=== PATIENT | male | born 1960 | race Caucasian/White ===

== ENCOUNTER 2022-12-06 14:31 | Emergency (ER) | payer OTHER, SELFPAY ==
--- NOTE | ~2022-12-06 | CT_ITS ---
NONCONTRAST CT OF THE THORACOLUMBAR SPINE CLINICAL INFORMATION: Lower leg weakness. COMPARISON: None available. TECHNIQUE: A multidetector CT acquisition of the thoracic and lumbar spine is obtained without contrast. This CT examination was performed using dose optimization techniques as appropriate, variously including the following: *Automated exposure control *Adjustment of mA and/or kV according to patient size (this includes techniques or standardized protocols for targeted exams where dose is matched to indication/reason for exam; i.e. extremities or head) *Use of iterative reconstruction technique FINDINGS: THORACIC SPINE CT: There are 12 rib bearing thoracic type vertebral bodies. There are no acute fractures and there are no acute subluxations. Vertebral body heights are maintained. The disc spaces are preserved. There is multilevel hypertrophic facet arthropathy. There are no suspicious intraosseous lesions. Thoracic disc contours are not diagnostically assessed on CT. There is no high-grade foraminal stenosis. There are a few small paracentral disc protrusions within the mid to lower thoracic spine that would be better assessed with MRI if not contraindicated. There are no significant soft tissue findings. Imaged lungs are clear. LUMBAR SPINE CT: There are 5 nonrib-bearing lumbar-type vertebral bodies. There is grade 1 retrolisthesis of L4 on L5. Grade 1 retrolisthesis of L2 on L3 as well. There are no acute fractures and there are no acute subluxations. There are multilevel endplate osteophytes. No suspicious intraosseous lesions. Vacuum phenomenon within the SI joints bilaterally. There is sigmoid diverticulosis. Bilateral perinephric stranding. Parapelvic cysts on the left side. At L2-L3, there is a diffuse annular disc bulge that mildly indents the ventral thecal sac disc osteophyte results in mild bilateral foraminal encroachment. At L3-L4, there is a diffuse annular disc bulge and there is moderate bilateral facet arthropathy likely resulting in mild narrowing of the central canal and mild bilateral foraminal encroachment. At L4-L5, there is a diffuse annular disc bulge with a superimposed broad-based right paracentral disc protrusion suspected to compress the traversing right greater than left L5 nerve roots within the subarticular zones and likely mild to moderate central canal stenosis. MRI would be more sensitive in assessment if not contraindicated. At L5-S1, there is a diffuse disc osteophyte complex and moderate bilateral facet arthropathy without central canal stenosis nor foraminal stenosis. A far left lateral disc osteophyte protrusion likely contacts the extraforaminal left L5 nerve root. CT/CT thoracic spine wo IV con IMPRESSION: - At L4-L5, there is a diffuse annular disc bulge with a superimposed broad-based right paracentral disc protrusion suspected to compress the traversing right greater than left L5 nerve roots within the subarticular zones and likely mild to moderate central canal stenosis. MRI would be more sensitive in assessment if not contraindicated. - No acute osseous findings within the thoracolumbar spine. MRI would be more sensitive in assessment.
--- NOTE | ~2022-12-06 | CT_ITS ---
EXAMINATION: CT HEAD WITHOUT CONTRAST CLINICAL INFORMATION: Weakness. COMPARISON: None. TECHNIQUE: Contiguous axial imaging was performed from the skull base to vertex without intravenous administration of contrast. Coronal and sagittal reformatted images are performed at the CT scanner. [This CT examination was performed using dose optimization techniques as appropriate, variously including the following: *Automated exposure control *Adjustment of mA and/or kV according to patient size (this includes techniques or standardized protocols for targeted exams where dose is matched to indication/reason for exam; i.e. extremities or head) *Use of iterative reconstruction technique] DLP: 708 mGy-cm. FINDINGS: There is no evidence of acute intracranial hemorrhage or territorial infarction. No abnormal mass-effect or midline shift is seen. [place] to white matter differentiation is well preserved. No extra-axial fluid collections are identified. The ventricles are normal in size. There is no abnormal attenuation within the brain parenchyma. There is no osseous abnormality. The mastoid air cells and visualized portions of the paranasal sinuses are well-aerated. CT/CT head/brain wo IV con IMPRESSION: No acute intracranial pathology.
[2022-12-06 15:09] VITALS: BP 174/91; PULSE 127; RESP 20; TEMP 36.8; O2SAT 97; BMI 28.0
--- NOTE | 2022-12-06 15:09 | ED_ITS ---
HPI - General Adult General Chief complaint: Weakness <FRANCE Lovelace - Last Filed: 12/06/22 15:18> Stated complaint: Weakness/Body pain <FRANCE Lovelace - Last Filed: 12/06/22 15:18> Time Seen by Provider: 12/06/22 16:00 <FRANCE Lovelace Last Filed: 12/06/22 15:18> Source: patient <FRANCE Britt - Last Filed: 12/06/22 16:50> Mode of arrival: ambulatory <FRANCE Britt Last Filed: 12/06/22 16:50> Limitations: no limitations <FRANCE Britt Last Filed: 12/06/22 16:50> History of Present Illness HPI narrative: 62 year old male with PMH of hypertension and spinal trauma presents with 5 days of gradually worsening weakness of both legs, feels pinned down , weakness, malise, fatigue, subjective fevers/chills. Pt also states that he has had bilateral shoulder pain and tingling for the past 5 days as well. Patient states shoulder pain is 7/10 worse with movement better at rest, atraumatic.. Patient is not able to ambulate at this time due to leg weakness, this is not patient's baseline this is never happened to him before. Patient denies numbness and tingling, dizziness, headache, loss of consciousness, back pain, saddle paresthesias, urinary/bowel incontinence/retention, fevers, chills, history of IV drug abuse, recent procedures, recent vaccination, recent illness. <FRANCE Britt Last Filed: 12/06/22 16:50> Related Data Home medications: Previous Rx's Medication Instructions Recorded cyclobenzaprine 10 mg tablet 10 mg PO Q8H #20 tabs 12/06/22 oxycodone-acetaminophen 5 mg-325 1 tab PO Q6H PRN pain #20 tabs 12/06/22 mg tablet (Percocet) <FRANCE Lovelace Last Filed: 12/06/22 15:18> Allergies/adverse reactions: Allergies Allergy/AdvReac Type Severity Reaction Status Date / Time Penicillins [PCN] Allergy Intermediate RASH Unverified 06/29/20 10:56 <FRANCE Lovelace - Last Filed: 12/06/22 15:18> Review of Systems Review of Systems: Constitutional : No Weight loss, + Fever, + Chills, + Fatigue, + Malaise ENT/Mouth : No sore throat, No Rhinorrhea Eyes: No Eye Pain, No Swelling, No Redness Cardiovascular : No Chest Pain, No SOB, No Dyspnea on Exertion, No Orthopnea, No Edema, No Palpitations Respiratory : No Cough, No Sputum, No Wheezing Gastrointestinal : No Nausea, No Vomiting, No Diarrhea, No Constipation, No abdominal Pain, No Hematochezia, No Melena Genitourinary : No Dysuria, No Urinary Frequency, No Hematuria, Musculoskeletal : No joint pain, + Myalgias, No Joint Swelling Skin : No Skin Lesions, No rash Neuro : + Weakness, No Numbness, No Dizziness, No Headache Psych : No Anxiety/Panic, No Depression All other systems reviewed and are negative <FRANCE Britt - Last Filed: 12/06/22 16:50> Yes all other systems are reviewed and are negative <FRANCE Britt - Last Filed: 12/06/22 16:50> [facility] Past Medical History Attestation statement: The following information was validated with the patient. <FRANCE Medley - Last Filed: 12/06/22 16:50> Source: old records reviewed and nursing notes reviewed <FRANCE Britt - Last Filed: 12/06/22 16:50> Social History Social History: Social History Alcohol intake: never Smoked in Last 30 Days: No Use of substances other than those prescribed or required for medical reasons: No Advance Directives: No Advance Directives Information Provided: No <FRANCE Lovelace - Last Filed: 12/06/22 15:18> Physical Exam ED Vital Signs: Vital Signs - 24 hr 12/06/22 15:09 12/06/22 15:47 12/06/22 20:14 Temperature 98.3 F 97.1 F 97.1 F Pulse Rate 127 H 114 H 97 Respiratory Rate 20 18 19 Blood Pressure 174/91 H 174/90 H 162/96 H Pulse Oximetry 97 96 96 Oxygen Delivery Method Room Air Room Air Room Air BMI result Body Mass Index 28.0 <FRANCE Lovelace - Last Filed: 12/06/22 15:18> Vital Signs - 24 hr 12/06/22 15:09 12/06/22 15:47 12/06/22 20:14 Temperature 98.3 F 97.1 F 97.1 F Pulse Rate 127 H 114 H 97 Respiratory Rate 20 18 19 Blood Pressure 174/91 H 174/90 H 162/96 H Pulse Oximetry 97 96 96 Oxygen Delivery Method Room Air Room Air Room Air BMI result Body Mass Index 28.0 Patient noted to be tachycardic <FRANCE Britt - Last Filed: 12/06/22 16:50> Vital Signs - 24 hr 12/06/22 15:09 12/06/22 15:47 12/06/22 20:14 Temperature 98.3 F 97.1 F 97.1 F Pulse Rate 127 H 114 H 97 Respiratory Rate 20 18 19 Blood Pressure 174/91 H 174/90 H 162/96 H Pulse Oximetry 97 96 96 Oxygen Delivery Method Room Air Room Air Room Air BMI result Body Mass Index 28.0 <Mark Anthony Lentz MD - Last Filed: 12/06/22 20:34> Appearance: Alert.? Oriented X3.? No acute distress.? Head: Normocephalic, atraumatic, no step-offs or deformities Eyes: Pupils equal, round and reactive to light.? CVS: Normal heart rate and rhythm.? Pulses normal.? Respiratory: No respiratory distress.? Breath sounds normal.? Abdomen: Soft and nontender.? Skin: Skin warm and dry.? Normal skin color.? Normal skin turgor.? Extremities: No lower extremity edema.? No calf ttp. 5/5 strength to bilateral upper extremities and 4/5 strength to bilateral lower extremities. 2+ patellar reflexes equal bilateral. Back: No midline tenderness, no C-spine tenderness, full range of motion, no CVA tenderness bilaterally Neuro: Oriented X 3.? No motor deficit.? No sensory deficit. CN 2-12 intact patient able to stand and pivot however unable to ambulate at this time he says he feels too weak. <FRANCE Britt - Last Filed: 12/06/22 16:50> Course Course Course Narrative: RME - 62 y/o male with history of spinal cord injury in 1992 with chronic back pain who presents to the ER for evaluation of bilateral lower extremity weakness and pain for the last 4 days associated with difficulty walking. Also reports right shoulder pain and weakness yesterday, now progressing to the left. Unable to lift arms above his head. He reports low grade fevers x3 days and loose watery stools along with diffuse body aches x1 week and feeling like I got his by a truck. Went to Urgent Care yesterday and told he may have a viral syndrome and to come to the ER if symptoms worsened. Concern for ascending neurological process. HR 120-130 in triage. <FRANCE Lovelace - Last Filed: 12/06/22 15:18> Reevaluation(s) Reevaluation #1: Sign out ot Dr. Lentz,. Pending labs Head CT. <FRANCE Britt - Last Filed: 12/06/22 16:50> Medical Decision Making Medical Decision Making [facility] Narrative: 1635 This is a 62-year-old male presenting with weakness to bilateral lower extremities and pain/weakness to bilateral shoulders x5 days progressively worsening. Denies recent surgeries, vaccinations. Does report however increasing stress. Denies red flag symptoms for back pain, denies back pain. Physical examination with diminished strength to bilateral lower extremities 4/5, upper extremities with 5/5 strength, able to stand pivot however unable to walk as he tells me he feels too weak. Normal reflexes 2+ to patellar region. Concerns for possible Guillain-Schurz. Will rule out urinary tract infection, electrolyte abnormalities. Patient former alcoholic will rule out B12 and folate deficiencies. Also rule out Lyme. Unlikely stroke or posterior stroke. Unlikely epidural abscess or cauda equina no signs of cord compression Plan at this time lab work, urine, Lyme test. <FRANCE Britt - Last Filed: 12/06/22 16:50> 1635 This is a 62-year-old male presenting with weakness to bilateral lower extremities and pain/weakness to bilateral shoulders x5 days progressively wors ening. Denies recent surgeries, vaccinations. Does report however increasing stress. Denies red flag symptoms for back pain, denies back pain. Physical examination with diminished strength to bilateral lower extremities 4/5, upper extremities with 5/5 strength, able to stand pivot however unable to walk as he tells me he feels too weak. Normal reflexes 2+ to patellar region. Concerns for possible Guillain-Schurz. Will rule out urinary tract infection, electrolyte abnormalities. Patient former alcoholic will rule out B12 and folate deficiencies. Also rule out Lyme. Unlikely stroke or posterior stroke. Unlikely epidural abscess or cauda equina no signs of cord compression Plan at this time lab work, urine, Lyme test. 1730 >>>>patient seen and re-evaluated patient is status post T5-6 thoracic spine injury in 1992 since then have chronic back unable to surgery for neurosurgeon as location is close to the heart. Since then patient has been having pain off and on the back patient had last MRI in 2005 which showed no changes patient does get numbness and tingling sometimes in the upper extremities and left-sided weakness for last 1 week patient noticed increased upper back pain and for last 2 days pain in the left leg and little weak when walk more than before. Patient has normal reflexes normal sensations no bladder or bowel involvement clinically patient does not have LGB syndrome does not have any signs of or epidural abscess or significant spinal cord injury will do CT scan of thoracic spine and lumbar spine to rule out any disc or any spinal cord impingement//lumbar spinal stenosis. CT scan of thoracic spine negative for any acute lumbar spine showed moderate lumbar canal stenosis per patient has this pain going on for several months got worse in last 1 week patient able to ambulate in the ER chart and pain medication and muscle relaxants advised to follow up with inclusion specialist <Mark Anthony Lentz MD - Last Filed: 12/06/22 20:34> Differential Diagnosis Differential Diagnoses: The differential diagnosis associated with the presentation includes <FRANCE Britt - Last Filed: 12/06/22 16:50> Concerns for possible Guillain-Schurz. Will rule out urinary tract infection, electrolyte abnormalities. Patient former alcoholic will rule out B12 and folate deficiencies. Also rule out Lyme. Unlikely stroke or posterior stroke. Unlikely epidural abscess or cauda equina no signs of cord compression. <FRANCE Britt - Last Filed: 12/06/22 16:50> Admission/Observation Consideration of admission/observation: Escalation of care including admission/observation considered <FRANCE Britt - Last Filed: 12/06/22 16:50> Lab Data MDM Lab Attestation statement: I reviewed the patient's lab results. <FRANCE Britt - Last Filed: 12/06/22 16:50> I reviewed the patient's lab results. <Mark Anthony Lentz MD - Last Filed: 12/06/22 20:34> Result Diagrams: 12/06/22 16:08 12/06/22 16:08 <FRANCE Lovelace - Last Filed: 12/06/22 15:18> Labs: Lab Results 12/06/22 12/06/22 12/06/22 Range/Units 15:57 16:07 16:08 WBC 12.9 H (4.8-10.8) X10*3/uL RBC 4.34 L (4.60-5.80) X10*6/uL Hgb 12.3 L (14.0-18.0) g/dl Hct 36.2 L (42.0-52.0) % MCV 83.4 (80.0-98.0) fL MCH 28.3 (27.0-33.0) pg MCHC 34.0 (31.0-36.0) g/dl RDW 12.1 (11.0-16.0) % Plt Count 325 (160-400) X10*3/uL MPV 8.4 L (9.4-12.4) fL Immature Gran % (Auto) 0.2 (0.0-0.4) % Neut % (Auto) 66.6 (45-73) % Lymph % (Auto) 20.9 (20-40) % [place] % (Auto) 9.4 (2-11) % Eos % (Auto) 2.6 (0-4) % Baso % (Auto) 0.3 (0-2) % Lymph # (Auto) 2.7 (1.2-4.9) X10*3/uL [place] # (Auto) 1.2 (0.1-1.2) X10*3/uL Eos # (Auto) 0.3 (0.0-0.4) X10*3/uL Baso # (Auto) 0.0 (0.0-0.2) X10*3/uL Abs Immat Gran (auto) 0.03 (0.00-0.03) X10*3/uL Absolute Neuts (auto) 8.6 H (2.0-8.3) x10*3/uL Absolute Nucleated RBC 0.000 (0.0-0.012) X10*3/uL Nucleated RBC % (auto) 0.0 (0.0-0.2) /100WBC ESR 87 H (0-15) MM/HR PT (10.0-13.1) SEC INR (0.9-1.1) APTT (26.0-36.4) SEC Sodium (135-145) mmol/L Potassium (3.3-5.1) mmol/L Chloride (96-108) mmol/L Carbon Dioxide (22-29) mmol/L Anion Gap (12-20) BUN (9-16) mg/dL Creatinine (0.5-1.4) mg/dL Estim Creat Clear Calc Estimated GFR Random Glucose (60-115) mg/dL Lactic Acid (0.5-2.0) mmol/L Calcium (8.4-10.2) mg/dL Magnesium (1.6-2.6) mg/dL Total Bilirubin (0.0-1.0) mg/dL Direct Bilirubin (0.0-0.5) mg/dL AST (5-37) U/L ALT (0-40) U/L Alkaline Phosphatase (39-117) U/L Total Creatine Kinase (38-174) U/L C-Reactive Protein (< or = 0.50) mg/dL Total Protein (6.5-8.0) g/dL Albumin (3.5-5.0) g/dL Vitamin B12 (200-900) pg/mL Folate (> or = 4.0) ng/mL TSH (0.32-4.0) uIU/mL Urine Color Urine Appearance Urine pH (5.0-9.0) Ur Specific [place] (1.005-1.025) Urine Protein (Neg-Trace) mg/dL Urine Glucose (UA) (Negative) mg/dL Urine Ketones (Negative) mg/dL Urine Blood (Negative) Urine Nitrite (Negative) Ur Leukocyte Esterase (Negative) COVID-19 ([facility]) Negative (Negative) COVID-19 Clin Com See Note 12/06/22 12/06/22 12/06/22 Range/Units 16:08 16:08 16:08 WBC (4.8-10.8) X10*3/uL RBC (4.60-5.80) X10*6/uL Hgb (14.0-18.0) g/dl Hct (42.0-52.0) % MCV (80.0-98.0) fL MCH (27.0-33.0) pg MCHC (31.0-36.0) g/dl RDW (11.0-16.0) % Plt Count (160-400) X10*3/uL MPV (9.4-12.4) fL Immature Gran % (Auto) (0.0-0.4) % Neut % (Auto) (45-73) % Lymph % (Auto) (20-40) % [place] % (Auto) (2-11) % Eos % (Auto) (0-4) % Baso % (Auto) (0-2) % Lymph # (Auto) (1.2-4.9) X10*3/uL [place] # (Auto) (0.1-1.2) X10*3/uL Eos # (Auto) (0.0-0.4) X10*3/uL Baso # (Auto) (0.0-0.2) X10*3/uL Abs Immat Gran (auto) (0.00-0.03) X10*3/uL Absolute Neuts (auto) (2.0-8.3) x10*3/uL Absolute Nucleated RBC (0.0-0.012) X10*3/uL Nucleated RBC % (auto) (0.0-0.2) /100WBC ESR (0-15) MM/HR PT 13.4 H (10.0-13.1) SEC INR 1.2 H (0.9-1.1) APTT 34.1 (26.0-36.4) SEC Sodium 140 (135-145) mmol/L Potassium 3.8 (3.3-5.1) mmol/L Chloride 106 (96-108) mmol/L Carbon Dioxide 24 (22-29) mmol/L Anion Gap 14 (12-20) BUN 19 H (9-16) mg/dL Creatinine 1.01 (0.5-1.4) mg/dL Estim Creat Clear Calc 81.4 Estimated GFR > 60 Random Glucose 131 H (60-115) mg/dL Lactic Acid 0.9 (0.5-2.0) mmol/L Calcium 8.6 (8.4-10.2) mg/dL Magnesium 1.9 (1.6-2.6) mg/dL Total Bilirubin 0.3 (0.0-1.0) mg/dL Direct Bilirubin < 0.2 (0.0-0.5) mg/dL AST 24 (5-37) U/L ALT 34 (0-40) U/L Alkaline Phosphatase 62 (39-117) U/L Total Creatine Kinase 34 L (38-174) U/L C-Reactive Protein 9.27 H (< or = 0.50) mg/dL Total Protein 6.8 (6.5-8.0) g/dL Albumin 4.0 (3.5-5.0) g/dL Vitamin B12 (200-900) pg/mL Folate (> or = 4.0) ng/mL TSH 2.60 (0.32-4.0) uIU/mL Urine Color Urine Appearance Urine pH (5.0-9.0) Ur Specific [place] (1.005-1.025) Urine Protein (Neg-Trace) mg/dL Urine Glucose (UA) (Negative) mg/dL Urine Ketones (Negative) mg/dL Urine Blood (Negative) Urine Nitrite (Negative) Ur Leukocyte Esterase (Negative) COVID-19 ([facility]) (Negative) COVID-19 Clin Com 12/06/22 12/06/22 Range/Units 17:07 20:03 WBC (4.8-10.8) X10*3/uL RBC (4.60-5.80) X10*6/uL Hgb (14.0-18.0) g/dl Hct (42.0-52.0) % MCV (80.0-98.0) fL MCH (27.0-33.0) pg MCHC (31.0-36.0) g/dl RDW (11.0-16.0) % Plt Count (160-400) X10*3/uL MPV (9.4-12.4) fL Immature Gran % (Auto) (0.0-0.4) % Neut % (Auto) (45-73) % Lymph % (Auto) (20-40) % [place] % (Auto) (2-11) % Eos % (Auto) (0-4) % Baso % (Auto) (0-2) % Lymph # (Auto) (1.2-4.9) X10*3/uL [place] # (Auto) (0.1-1.2) X10*3/uL Eos # (Auto) (0.0-0.4) X10*3/uL Baso # (Auto) (0.0-0.2) X10*3/uL Abs Immat Gran (auto) (0.00-0.03) X10*3/uL Absolute Neuts (auto) (2.0-8.3) x10*3/uL Absolute Nucleated RBC (0.0-0.012) X10*3/uL Nucleated RBC % (auto) (0.0-0.2) /100WBC ESR (0-15) MM/HR PT (10.0-13.1) SEC INR (0.9-1.1) APTT (26.0-36.4) SEC Sodium (135-145) mmol/L Potassium (3.3-5.1) mmol/L Chloride (96-108) mmol/L Carbon Dioxide (22-29) mmol/L Anion Gap (12-20) BUN (9-16) mg/dL Creatinine (0.5-1.4) mg/dL Estim Creat Clear Calc Estimated GFR Random Glucose (60-115) mg/dL Lactic Acid (0.5-2.0) mmol/L Calcium (8.4-10.2) mg/dL Magnesium (1.6-2.6) mg/dL Total Bilirubin (0.0-1.0) mg/dL Direct Bilirubin (0.0-0.5) mg/dL AST (5-37) U/L ALT (0-40) U/L Alkaline Phosphatase (39-117) U/L Total Creatine Kinase (38-174) U/L C-Reactive Protein (< or = 0.50) mg/dL Total Protein (6.5-8.0) g/dL Albumin (3.5-5.0) g/dL Vitamin B12 339 (200-900) pg/mL Folate 12.0 (> or = 4.0) ng/mL TSH (0.32-4.0) uIU/mL Urine Color Yellow Urine Appearance Clear Urine pH 5.5 (5.0-9.0) Ur Specific [place] 1.010 (1.005-1.025) Urine Protein Negative (Neg-Trace) mg/dL Urine Glucose (UA) Negative (Negative) mg/dL Urine Ketones Negative (Negative) mg/dL Urine Blood Negative (Negative) Urine Nitrite Negative (Negative) Ur Leukocyte Esterase Negative (Negative) COVID-19 ([facility]) (Negative) COVID-19 Clin Com <FRANCE Lovelace - Last Filed: 12/06/22 15:18> Lab Results 12/06/22 12/06/22 12/06/22 Range/Units 15:57 16:07 16:08 WBC 12.9 H (4.8-10.8) X10*3/uL RBC 4.34 L (4.60-5.80) X10*6/uL Hgb 12.3 L (14.0-18.0) g/dl Hct 36.2 L (42.0-52.0) % MCV 83.4 (80.0-98.0) fL MCH 28.3 (27.0-33.0) pg MCHC 34.0 (31.0-36.0) g/dl RDW 12.1 (11.0-16.0) % Plt Count 325 (160-400) X10*3/uL MPV 8.4 L (9.4-12.4) fL Immature Gran % (Auto) 0.2 (0.0-0.4) % Neut % (Auto) 66.6 (45-73) % Lymph % (Auto) 20.9 (20-40) % [place] % (Auto) 9.4 (2-11) % Eos % (Auto) 2.6 (0-4) % Baso % (Auto) 0.3 (0-2) % Lymph # (Auto) 2.7 (1.2-4.9) X10*3/uL [place] # (Auto) 1.2 (0.1-1.2) X10*3/uL Eos # (Auto) 0.3 (0.0-0.4) X10*3/uL Baso # (Auto) 0.0 (0.0-0.2) X10*3/uL Abs Immat Gran (auto) 0.03 (0.00-0.03) X10*3/uL Absolute Neuts (auto) 8.6 H (2.0-8.3) x10*3/uL Absolute Nucleated RBC 0.000 (0.0-0.012) X10*3/uL Nucleated RBC % (auto) 0.0 (0.0-0.2) /100WBC ESR 87 H (0-15) MM/HR PT (10.0-13.1) SEC INR (0.9-1.1) APTT (26.0-36.4) SEC Sodium (135-145) mmol/L Potassium (3.3-5.1) mmol/L Chloride (96-108) mmol/L Carbon Dioxide (22-29) mmol/L Anion Gap (12-20) BUN (9-16) mg/dL Creatinine (0.5-1.4) mg/dL Estim Creat Clear Calc Estimated GFR Random Glucose (60-115) mg/dL Lactic Acid (0.5-2.0) mmol/L Calcium (8.4-10.2) mg/dL Magnesium (1.6-2.6) mg/dL Total Bilirubin (0.0-1.0) mg/dL Direct Bilirubin (0.0-0.5) mg/dL AST (5-37) U/L ALT (0-40) U/L Alkaline Phosphatase (39-117) U/L Total Creatine Kinase (38-174) U/L C-Reactive Protein (< or = 0.50) mg/dL Total Protein (6.5-8.0) g/dL Albumin (3.5-5.0) g/dL Vitamin B12 (200-900) pg/mL Folate (> or = 4.0) ng/mL TSH (0.32-4.0) uIU/mL Urine Color Urine Appearance Urine pH (5.0-9.0) Ur Specific [place] (1.005-1.025) Urine Protein (Neg-Trace) mg/dL Urine Glucose (UA) (Negative) mg/dL Urine Ketones (Negative) mg/dL Urine Blood (Negative) Urine Nitrite (Negative) Ur Leukocyte Esterase (Negative) COVID-19 ([facility]) Negative (Negative) COVID-19 Clin Com See Note 12/06/22 12/06/22 12/06/22 Range/Units 16:08 16:08 16:08 WBC (4.8-10.8) X10*3/uL RBC (4.60-5.80) X10*6/uL Hgb (14.0-18.0) g/dl Hct (42.0-52.0) % MCV (80.0-98.0) fL MCH (27.0-33.0) pg MCHC (31.0-36.0) g/dl RDW (11.0-16.0) % Plt Count (160-400) X10*3/uL MPV (9.4-12.4) fL Immature Gran % (Auto) (0.0-0.4) % Neut % (Auto) (45-73) % Lymph % (Auto) (20-40) % [place] % (Auto) (2-11) % Eos % (Auto) (0-4) % Baso % (Auto) (0-2) % Lymph # (Auto) (1.2-4.9) X10*3/uL [place] # (Auto) (0.1-1.2) X10*3/uL Eos # (Auto) (0.0-0.4) X10*3/uL Baso # (Auto) (0.0-0.2) X10*3/uL Abs Immat Gran (auto) (0.00-0.03) X10*3/uL Absolute Neuts (auto) (2.0-8.3) x10*3/uL Absolute Nucleated RBC (0.0-0.012) X10*3/uL Nucleated RBC % (auto) (0.0-0.2) /100WBC ESR (0-15) MM/HR PT 13.4 H (10.0-13.1) SEC INR 1.2 H (0.9-1.1) APTT 34.1 (26.0-36.4) SEC Sodium 140 (135-145) mmol/L Potassium 3.8 (3.3-5.1) mmol/L Chloride 106 (96-108) mmol/L Carbon Dioxide 24 (22-29) mmol/L Anion Gap 14 (12-20) BUN 19 H (9-16) mg/dL Creatinine 1.01 (0.5-1.4) mg/dL Estim Creat Clear Calc 81.4 Estimated GFR > 60 Random Glucose 131 H (60-115) mg/dL Lactic Acid 0.9 (0.5-2.0) mmol/L Calcium 8.6 (8.4-10.2) mg/dL Magnesium 1.9 (1.6-2.6) mg/dL Total Bilirubin 0.3 (0.0-1.0) mg/dL Direct Bilirubin < 0.2 (0.0-0.5) mg/dL AST 24 (5-37) U/L ALT 34 (0-40) U/L Alkaline Phosphatase 62 (39-117) U/L Total Creatine Kinase 34 L (38-174) U/L C-Reactive Protein 9.27 H (< or = 0.50) mg/dL Total Protein 6.8 (6.5-8.0) g/dL Albumin 4.0 (3.5-5.0) g/dL Vitamin B12 (200-900) pg/mL Folate (> or = 4.0) ng/mL TSH 2.60 (0.32-4.0) uIU/mL Urine Color Urine Appearance Urine pH (5.0-9.0) Ur Specific [place] (1.005-1.025) Urine Protein (Neg-Trace) mg/dL Urine Glucose (UA) (Negative) mg/dL Urine Ketones (Negative) mg/dL Urine Blood (Negative) Urine Nitrite (Negative) Ur Leukocyte Esterase (Negative) COVID-19 ([facility]) (Negative) COVID-19 Clin Com 12/06/22 12/06/22 Range/Units 17:07 20:03 WBC (4.8-10.8) X10*3/uL RBC (4.60-5.80) X10*6/uL Hgb (14.0-18.0) g/dl Hct (42.0-52.0) % MCV (80.0-98.0) fL MCH (27.0-33.0) pg MCHC (31.0-36.0) g/dl RDW (11.0-16.0) % Plt Count (160-400) X10*3/uL MPV (9.4-12.4) fL Immature Gran % (Auto) (0.0-0.4) % Neut % (Auto) (45-73) % Lymph % (Auto) (20-40) % [place] % (Auto) (2-11) % Eos % (Auto) (0-4) % Baso % (Auto) (0-2) % Lymph # (Auto) (1.2-4.9) X10*3/uL [place] # (Auto) (0.1-1.2) X10*3/uL Eos # (Auto) (0.0-0.4) X10*3/uL Baso # (Auto) (0.0-0.2) X10*3/uL Abs Immat Gran (auto) (0.00-0.03) X10*3/uL Absolute Neuts (auto) (2.0-8.3) x10*3/uL Absolute Nucleated RBC (0.0-0.012) X10*3/uL Nucleated RBC % (auto) (0.0-0.2) /100WBC ESR (0-15) MM/HR PT (10.0-13.1) SEC INR (0.9-1.1) APTT (26.0-36.4) SEC Sodium (135-145) mmol/L Potassium (3.3-5.1) mmol/L Chloride (96-108) mmol/L Carbon Dioxide (22-29) mmol/L Anion Gap (12-20) BUN (9-16) mg/dL Creatinine (0.5-1.4) mg/dL Estim Creat Clear Calc Estimated GFR Random Glucose (60-115) mg/dL Lactic Acid (0.5-2.0) mmol/L Calcium (8.4-10.2) mg/dL Magnesium (1.6-2.6) mg/dL Total Bilirubin (0.0-1.0) mg/dL Direct Bilirubin (0.0-0.5) mg/dL AST (5-37) U/L ALT (0-40) U/L Alkaline Phosphatase (39-117) U/L Total Creatine Kinase (38-174) U/L C-Reactive Protein (< or = 0.50) mg/dL Total Protein (6.5-8.0) g/dL Albumin (3.5-5.0) g/dL Vitamin B12 339 (200-900) pg/mL Folate 12.0 (> or = 4.0) ng/mL TSH (0.32-4.0) uIU/mL Urine Color Yellow Urine Appearance Clear Urine pH 5.5 (5.0-9.0) Ur Specific [place] 1.010 (1.005-1.025) Urine Protein Negative (Neg-Trace) mg/dL Urine Glucose (UA) Negative (Negative) mg/dL Urine Ketones Negative (Negative) mg/dL Urine Blood Negative (Negative) Urine Nitrite Negative (Negative) Ur Leukocyte Esterase Negative (Negative) COVID-19 ([facility]) (Negative) COVID-19 Clin Com <FRANCE Britt - Last Filed: 12/06/22 16:50> Lab Results 12/06/22 12/06/22 12/06/22 Range/Units 15:57 16:07 16:08 WBC 12.9 H (4.8-10.8) X10*3/uL RBC 4.34 L (4.60-5.80) X10*6/uL Hgb 12.3 L (14.0-18.0) g/dl Hct 36.2 L (42.0-52.0) % MCV 83.4 (80.0-98.0) fL MCH 28.3 (27.0-33.0) pg MCHC 34.0 (31.0-36.0) g/dl RDW 12.1 (11.0-16.0) % Plt Count 325 (160-400) X10*3/uL MPV 8.4 L (9.4-12.4) fL Immature Gran % (Auto) 0.2 (0.0-0.4) % Neut % (Auto) 66.6 (45-73) % Lymph % (Auto) 20.9 (20-40) % [place] % (Auto) 9.4 (2-11) % Eos % (Auto) 2.6 (0-4) % Baso % (Auto) 0.3 (0-2) % Lymph # (Auto) 2.7 (1.2-4.9) X10*3/uL [place] # (Auto) 1.2 (0.1-1.2) X10*3/uL Eos # (Auto) 0.3 (0.0-0.4) X10*3/uL Baso # (Auto) 0.0 (0.0-0.2) X10*3/uL Abs Immat Gran (auto) 0.03 (0.00-0.03) X10*3/uL Absolute Neuts (auto) 8.6 H (2.0-8.3) x10*3/uL Absolute Nucleated RBC 0.000 (0.0-0.012) X10*3/uL Nucleated RBC % (auto) 0.0 (0.0-0.2) /100WBC ESR 87 H (0-15) MM/HR PT (10.0-13.1) SEC INR (0.9-1.1) APTT (26.0-36.4) SEC Sodium (135-145) mmol/L Potassium (3.3-5.1) mmol/L Chloride (96-108) mmol/L Carbon Dioxide (22-29) mmol/L Anion Gap (12-20) BUN (9-16) mg/dL Creatinine (0.5-1.4) mg/dL Estim Creat Clear Calc Estimated GFR Random Glucose (60-115) mg/dL Lactic Acid (0.5-2.0) mmol/L Calcium (8.4-10.2) mg/dL Magnesium (1.6-2.6) mg/dL Total Bilirubin (0.0-1.0) mg/dL Direct Bilirubin (0.0-0.5) mg/dL AST (5-37) U/L ALT (0-40) U/L Alkaline Phosphatase (39-117) U/L Total Creatine Kinase (38-174) U/L C-Reactive Protein (< or = 0.50) mg/dL Total Protein (6.5-8.0) g/dL Albumin (3.5-5.0) g/dL Vitamin B12 (200-900) pg/mL Folate (> or = 4.0) ng/mL TSH (0.32-4.0) uIU/mL Urine Color Urine Appearance Urine pH (5.0-9.0) Ur Specific [place] (1.005-1.025) Urine Protein (Neg-Trace) mg/dL Urine Glucose (UA) (Negative) mg/dL Urine Ketones (Negative) mg/dL Urine Blood (Negative) Urine Nitrite (Negative) Ur Leukocyte Esterase (Negative) COVID-19 ([facility]) Negative (Negative) COVID-19 Clin Com See Note 12/06/22 12/06/22 12/06/22 Range/Units 16:08 16:08 16:08 WBC (4.8-10.8) X10*3/uL RBC (4.60-5.80) X10*6/uL Hgb (14.0-18.0) g/dl Hct (42.0-52.0) % MCV (80.0-98.0) fL MCH (27.0-33.0) pg MCHC (31.0-36.0) g/dl RDW (11.0-16.0) % Plt Count (160-400) X10*3/uL MPV (9.4-12.4) fL Immature Gran % (Auto) (0.0-0.4) % Neut % (Auto) (45-73) % Lymph % (Auto) (20-40) % [place] % (Auto) (2-11) % Eos % (Auto) (0-4) % Baso % (Auto) (0-2) % Lymph # (Auto) (1.2-4.9) X10*3/uL [place] # (Auto) (0.1-1.2) X10*3/uL Eos # (Auto) (0.0-0.4) X10*3/uL Baso # (Auto) (0.0-0.2) X10*3/uL Abs Immat Gran (auto) (0.00-0.03) X10*3/uL Absolute Neuts (auto) (2.0-8.3) x10*3/uL Absolute Nucleated RBC (0.0-0.012) X10*3/uL Nucleated RBC % (auto) (0.0-0.2) /100WBC ESR (0-15) MM/HR PT 13.4 H (10.0-13.1) SEC INR 1.2 H (0.9-1.1) APTT 34.1 (26.0-36.4) SEC Sodium 140 (135-145) mmol/L Potassium 3.8 (3.3-5.1) mmol/L Chloride 106 (96-108) mmol/L Carbon Dioxide 24 (22-29) mmol/L Anion Gap 14 (12-20) BUN 19 H (9-16) mg/dL Creatinine 1.01 (0.5-1.4) mg/dL Estim Creat Clear Calc 81.4 Estimated GFR > 60 Random Glucose 131 H (60-115) mg/dL Lactic Acid 0.9 (0.5-2.0) mmol/L Calcium 8.6 (8.4-10.2) mg/dL Magnesium 1.9 (1.6-2.6) mg/dL Total Bilirubin 0.3 (0.0-1.0) mg/dL Direct Bilirubin < 0.2 (0.0-0.5) mg/dL AST 24 (5-37) U/L ALT 34 (0-40) U/L Alkaline Phosphatase 62 (39-117) U/L Total Creatine Kinase 34 L (38-174) U/L C-Reactive Protein 9.27 H (< or = 0.50) mg/dL Total Protein 6.8 (6.5-8.0) g/dL Albumin 4.0 (3.5-5.0) g/dL Vitamin B12 (200-900) pg/mL Folate (> or = 4.0) ng/mL TSH 2.60 (0.32-4.0) uIU/mL Urine Color Urine Appearance Urine pH (5.0-9.0) Ur Specific [place] (1.005-1.025) Urine Protein (Neg-Trace) mg/dL Urine Glucose (UA) (Negative) mg/dL Urine Ketones (Negative) mg/dL Urine Blood (Negative) Urine Nitrite (Negative) Ur Leukocyte Esterase (Negative) COVID-19 ([facility]) (Negative) COVID-19 Clin Com 12/06/22 12/06/22 Range/Units 17:07 20:03 WBC (4.8-10.8) X10*3/uL RBC (4.60-5.80) X10*6/uL Hgb (14.0-18.0) g/dl Hct (42.0-52.0) % MCV (80.0-98.0) fL MCH (27.0-33.0) pg MCHC (31.0-36.0) g/dl RDW (11.0-16.0) % Plt Count (160-400) X10*3/uL MPV (9.4-12.4) fL Immature Gran % (Auto) (0.0-0.4) % Neut % (Auto) (45-73) % Lymph % (Auto) (20-40) % [place] % (Auto) (2-11) % Eos % (Auto) (0-4) % Baso % (Auto) (0-2) % Lymph # (Auto) (1.2-4.9) X10*3/uL [place] # (Auto) (0.1-1.2) X10*3/uL Eos # (Auto) (0.0-0.4) X10*3/uL Baso # (Auto) (0.0-0.2) X10*3/uL Abs Immat Gran (auto) (0.00-0.03) X10*3/uL Absolute Neuts (auto) (2.0-8.3) x10*3/uL Absolute Nucleated RBC (0.0-0.012) X10*3/uL Nucleated RBC % (auto) (0.0-0.2) /100WBC ESR (0-15) MM/HR PT (10.0-13.1) SEC INR (0.9-1.1) APTT (26.0-36.4) SEC Sodium (135-145) mmol/L Potassium (3.3-5.1) mmol/L Chloride (96-108) mmol/L Carbon Dioxide (22-29) mmol/L Anion Gap (12-20) BUN (9-16) mg/dL Creatinine (0.5-1.4) mg/dL Estim Creat Clear Calc Estimated GFR Random Glucose (60-115) mg/dL Lactic Acid (0.5-2.0) mmol/L Calcium (8.4-10.2) mg/dL Magnesium (1.6-2.6) mg/dL Total Bilirubin (0.0-1.0) mg/dL Direct Bilirubin (0.0-0.5) mg/dL AST (5-37) U/L ALT (0-40) U/L Alkaline Phosphatase (39-117) U/L Total Creatine Kinase (38-174) U/L C-Reactive Protein (< or = 0.50) mg/dL Total Protein (6.5-8.0) g/dL Albumin (3.5-5.0) g/dL Vitamin B12 339 (200-900) pg/mL Folate 12.0 (> or = 4.0) ng/mL TSH (0.32-4.0) uIU/mL Urine Color Yellow Urine Appearance Clear Urine pH 5.5 (5.0-9.0) Ur Specific [place] 1.010 (1.005-1.025) Urine Protein Negative (Neg-Trace) mg/dL Urine Glucose (UA) Negative (Negative) mg/dL Urine Ketones Negative (Negative) mg/dL Urine Blood Negative (Negative) Urine Nitrite Negative (Negative) Ur Leukocyte Esterase Negative (Negative) COVID-19 ([facility]) (Negative) COVID-19 Clin Com <Mark Anthony Lentz MD - Last Filed: 12/06/22 20:34> Core Measures AMI core measures followed: Yes <FRANCE Britt - Last Filed: 12/06/22 16:50> Measure exclusions: not indicated <FRANCE Britt - Last Filed: 12/06/22 16:50> Critical Care Time Critical Care Time Critical Care Time: No <FRANCE Britt - Last Filed: 12/06/22 16:50> Discharge Plan Discharge Clinical Impression: Lumbar spinal stenosis <FRANCE Lovelace - Last Filed: 12/06/22 15:18> Patient Disposition: Home, Self-Care <FRANCE Lovelace - Last Filed: 12/06/22 15:18> Instructions: Lumbar Spinal Stenosis (ED) <FRANCE Lovelace - Last Filed: 12/06/22 15:18> Additional Instructions: Pain medication and muscle relaxers as advised Follow-up with inclusion specialist as planned <FRANCE Lovelace - Last Filed: 12/06/22 15:18> Prescriptions: New cyclobenzaprine 10 mg tablet 10 mg PO Q8H Qty: 20 0RF oxycodone-acetaminophen [Percocet] 5-325 mg tablet 1 tab PO Q6H PRN (Reason: pain) Qty: 20 0RF Rx Instructions: Partial Fill upon patient request. <FRANCE Lovelace - Last Filed: 12/06/22 15:18> Referrals: [facility] [Outside] <FRANCE Lovelace - Last Filed: 12/06/22 15:18>
--- NOTE | 2022-12-06 15:17 | ECG_ITS ---
Test Reason : chevem Blood Pressure : / mmHG Vent. Rate : 113 BPM Atrial Rate : 113 BPM P-R Int : 146 ms QRS Dur : 094 ms QT Int : 322 ms P-R-T Axes : 059 040 046 degrees QTc Int : 441 ms Sinus tachycardia Cannot rule out Anterior infarct , age undetermined Abnormal ECG When compared with ECG of 29-JUN-2020 10:52, No significant change was found Referred By: Pamela Carrillo Electronically Signed By:SHAN PELAYO
[2022-12-06 15:47] VITALS: BP 174/90; PULSE 114; RESP 18; TEMP 36.2; O2SAT 96
[2022-12-06 16:16] LABS: MANUAL DIFF FLAG NO
[2022-12-06 16:18] LABS: Basophils Percent Auto 0.3 % (0-2); Eosinophils Absolute Auto 0.3 X10*3/uL (0.0-0.4); Eosinophils Percent Auto 2.6 % (0-4); Hematocrit 36.2 % (42.0-52.0); Hemoglobin 12.3 g/dl (14.0-18.0); Imm Gran Abs Auto 0.03 X10*3/uL (0.00-0.03); Imm Gran Pct Auto 0.2 % (0.0-0.4); Lymphocytes Absolute Auto 2.7 X10*3/uL (1.2-4.9); Lymphocytes Percent Auto 20.9 % (20-40); Mean Corpuscular Hemoglobin 28.3 pg (27.0-33.0); Mean Corpuscular Volume 83.4 fL (80.0-98.0); Mean Platelet Volume 8.4 fL (9.4-12.4); Monocytes Absolute Auto 1.2 X10*3/uL (0.1-1.2); Monocytes Percent Auto 9.4 % (2-11); Neutrophils Absolute Auto 8.6 x10*3/uL (2.0-8.3); Neutrophils Percent Auto 66.6 % (45-73); Platelet Count 325 X10*3/uL (160-400); Red Blood Count 4.34 X10*6/uL (4.60-5.80); Red Cell Distribution Width 12.1 % (11.0-16.0); White Blood Count 12.9 X10*3/uL (4.8-10.8)
[2022-12-06 16:25] LABS: INTERNATIONAL NORM RATIO 1.2 (0.9-1.1); Prothrombin Time 13.4 SEC (10.0-13.1)
[2022-12-06 16:28] LABS: Lactic Acid 0.9 mmol/L (0.5-2.0); Partial Thromboplastin Time 34.1 SEC (26.0-36.4)
[2022-12-06 16:33] LABS: COVID-19 Test Negative (Negative); IDNOW Serial# 16C4AD1C
[2022-12-06 16:40] LABS: Alanine Aminotransferase 34 U/L (0-40); Alkaline Phosphatase 62 U/L (39-117); Anion Gap 14 (12-20); Aspartate Amino Transferase 24 U/L (5-37); Bilirubin Direct < 0.2 mg/dL (0.0-0.5); Bilirubin Total 0.3 mg/dL (0.0-1.0); Blood Urea Nitrogen 19 mg/dL (9-16); C Reactive Protein 9.27 mg/dL (< or = 0.50); Calcium 8.6 mg/dL (8.4-10.2); Carbon Dioxide 24 mmol/L (22-29); Chloride 106 mmol/L (96-108); Creatinine Clr Calc Pharmacy 81.4; Estimated Glomerular Filt Rate > 60; Glucose Random 131 mg/dL (60-115); Magnesium 1.9 mg/dL (1.6-2.6); Potassium 3.8 mmol/L (3.3-5.1); Sodium 140 mmol/L (135-145); Total Protein 6.8 g/dL (6.5-8.0)
--- NOTE | 2022-12-06 16:42 | PC.NURSE ---
pt alert and oriented, skin pwd, respirations even and unlabored, pt reports for about a week having lots of pain, especially in his left hip/groin area to the point that the pt was having difficulties ambulating yesterday and today, rib pain and lots of right shoulder pain-pt unable to lift his right shoulder above, all neuro intact, vs stable and ns on the monitor
[2022-12-06 16:56] LABS: Erythrocyte Sedimentation Rate 87 MM/HR (0-15)
[2022-12-06 18:07] LABS: Vitamin B12 339 pg/mL (200-900)
[2022-12-06 20:12] LABS: Appearance Urine Clear; Color Urine Yellow; Glucose Urine UA Negative (Negative); Leukocyte Esterase Urine Negative (Negative); Nitrite Urine Negative (Negative); PH 5.5 (5.0-9.0); Urine Blood Negative (Negative); Urine Ketones Negative (Negative); Urine Protein Negative (Neg-Trace)
[2022-12-06 20:14] VITALS: BP 162/96; PULSE 97; RESP 19; TEMP 36.2; O2SAT 96
[2022-12-06 21:27] VITALS: BP 151/93; PULSE 97; RESP 16; O2SAT 97
--- NOTE | 2022-12-06 21:39 | PC.NURSE ---
1st encounter with patient for dc purposes. Pt awake, alert and oriented x 3. Skin warm and dry. Resp unlabored. Denies N/V. +CMS. Reports pain is 7/10. Sent home with scripts. Reports that the pain is not new. Neuros intact. Family at bedside. All parties agreeable to DC home.
[2022-12-07 12:13] LABS: Lyme Blot 2.84 index
[2022-12-08 11:11] LABS: Lyme Abs Screen POSITIVE
[2022-12-08 12:33] LABS: 18 KD (IgG) Band NON-REACTIVE; 23 KD (IgG) Band NON-REACTIVE; 23 KD (IgM) Band NON-REACTIVE; 28 KD (IgG) Band NON-REACTIVE; 30 KD (IgG) Band NON-REACTIVE; 39 KD (IgM) Band NON-REACTIVE; 39KD (IgG) Band NON-REACTIVE; 41 KD (IgM) Band NON-REACTIVE; 41KD (IgG) Band REACTIVE; 45 KD (IgG) Band NON-REACTIVE; 58 KD (IgG) Band NON-REACTIVE; 66 KD (IgG) Band NON-REACTIVE; 93 KD (IgG) Band NON-REACTIVE; Lyme IgG Blot Interp NEGATIVE (NEGATIVE); Lyme IgM Blot Interp NEGATIVE (NEGATIVE)
== END 2022-12-06 21:42 | disposition home or self-care (01) ==
PROVIDERS: Physician Assistant; Emergency Provider Internal Medicine; PCP Physician Assistant Medical
DX: M48.061 Spinal stenosis, lumbar region without neurogenic claudication (principal); R53.1 Weakness; Z20.822 Contact with and (suspected) exposure to COVID-19
CPT/HCPCS: 36415; 70450; 72128; 72131; 80048; 80076; 81003; 82550; 82607; 82746; 83605; 83735; 84443; 85025; 85610; 85652; 85730; 86140; 86617; 86618; 87040; 87635; 93005; 99284; 99285